=== PATIENT | female | born 1995 | race African-American/Black ===

== ENCOUNTER 2018-03-07 16:46 | Emergency (ER) | payer OTHER ==
[~2018-03-07] VITALS: Ht 162.6 cm; Wt 58.1 kg
[2018-03-07 17:53] LABS: BACTERIA,URINE FEW /HPF (0-FEW); BILIRUBIN,URINE NEG (NEG); CLARITY,URINE HAZY; COLOR,URINE YELLOW; GLUCOSE,URINE NEG (NEG); NITRITE,URINE NEG (NEG); SQUAMOUS EPITHELIAL CELL,UR MANY /LPF; UROBILINOGEN,URINE 0.2 mg/dL (0.2 mg/dL)
[2018-03-07] MEDS ORDERED: FLUC150T PO (18:01)
[2018-03-07] MEDS ORDERED: CIPR250T30 PO (18:01)
--- NOTE | 2018-03-07 18:01 | PHYS DOC ---
Past History Past Medical History: No Pertinent History Past Surgical History: Other Drug Use: None Adult General Chief Complaint Chief Complaint: VAGINAL PROBLEM HPI HPI Patient is a 23-year-old female who presents with complaining of vaginal discharge and itching. Patient states she became sexually active for the first time 2 weeks ago with using condoms since yesterday states she had has had itching and discharge without nausea and vomiting, abdominal pain, vaginal bleeding. She denies history of STD. Review of Systems Review of Systems Constitutional: Denies fever or chills [] Eyes: Denies change in visual acuity, redness, or eye pain [] HENT: Denies nasal congestion or sore throat [] Respiratory: Denies cough or shortness of breath [] Cardiovascular: No additional information not addressed in HPI [] GI: Denies abdominal pain, nausea, vomiting, bloody stools or diarrhea [] : Denies dysuria or hematuria [] Musculoskeletal: Denies back pain or joint pain [] Integument: Denies rash or skin lesions [] Neurologic: Denies headache, focal weakness or sensory changes [] Endocrine: Denies polyuria or polydipsia [] All other systems were reviewed and found to be within normal limits, except as documented in this note. Allergies Allergies Allergies Coded Allergies Type Severity Reaction Last Updated Verified nickel Allergy Intermediate 03/07/18 Yes Physical Exam Physical Exam Constitutional: Well developed, well nourished, no acute distress, non-toxic appearance. [] HENT: Normocephalic, atraumatic Eyes: PERRLA, EOMI, conjunctiva normal, no discharge. [] Neck: Normal range of motion, no tenderness, supple, no stridor. [] Cardiovascular:Heart rate regular rhythm, no murmur [] Lungs & Thorax: Bilateral breath sounds clear to auscultation [] Abdomen: Bowel sounds normal, soft, no tenderness, no masses, no pulsatile masses. [Vaginal exam with present of entomology teacher showed normal external vagina without lesions, moderate amount of cheesy-like discharge in the vagina without tenderness or adnexal mass Skin: Warm, dry, no erythema, no rash. [] Back: No tenderness, no CVA tenderness. [] Extremities: No tenderness, no cyanosis, no clubbing, ROM intact, no edema. [] Neurologic: Alert and oriented X 3, normal motor function, normal sensory function, no focal deficits noted. [] Psychologic: Affect normal, judgement normal, mood normal. [] Current Patient Data Vital Signs Vital Signs Date Time Temp Pulse Resp B/P (MAP) Pulse Ox O2 Delivery O2 Flow Rate FiO2 03/07/18 16:55 98.6 67 22 99 Room Air Lab Results Laboratory Tests Test 03/07/18 16:33 03/07/18 17:05 POC Urine HCG, Qualitative hcg negative (Negative) Urine Collection Type Unknown Urine Color Yellow Urine Clarity Hazy Urine pH 5.5 Urine Specific [place] >=1.030 Urine Protein Neg (NEG-TRACE) Urine Glucose (UA) Neg mg/dL (NEG) Urine Ketones (Stick) Neg mg/dL (NEG) Urine Blood Small (NEG) Urine Nitrite Neg (NEG) Urine Bilirubin Neg (NEG) Urine Urobilinogen Dipstick 0.2 mg/dL (0.2 mg/dL) Urine Leukocyte Esterase Small (NEG) Urine RBC 3-5 /HPF (0-2) Urine WBC 5-10 /HPF (0-4) Urine Squamous Epithelial Cells Many /LPF Urine Bacteria Few /HPF (0-FEW) Urine Mucus Marked /LPF EKG EKG [] Radiology/Procedures Radiology/Procedures [] Course & Med Decision Making Course & Med Decision Making Pertinent Labs and Imaging studies reviewed. (See chart for details) Addendum by Dr. Dante Gama at 1828: I took over care of patient at 1800. I followed up with the patient's wet prep which was pending at time of sign out. Wet prep is unremarkable. Patient prescribed appropriate medication for treatment of candidiasis and urinary tract infection. Evaluation shows no change from previous the documented exam. Patient discharged with follow-up as explained by Dr. Ferreira prior to my evaluation. Recommended return the emergency department for any worsening symptoms. Patient was understanding and agreement with treatment plan.[] Dragon Disclaimer Dragon Disclaimer This electronic medical record was generated, in whole or in part, using a voice recognition dictation system. Departure Departure: Impression: Primary Impression: Urinary tract infection Additional Impression: Vaginal discharge Disposition: 01 HOME, SELF-CARE Condition: STABLE Referrals: VALERIE DAS (PCP) Patient Instructions: Urinary Tract Infection, Vaginitis, Monilial Additional Instructions: Drink plenty of liquids Follow-up with your primary care physician in 3-5 days Return to ER if not getting better Scripts Fluconazole (DIFLUCAN) 150 Mg Tablet 1 TAB PO ONCE, #1 TAB 1 Refill Prov: VIVIANE FERREIRA MD 03/07/18 Ciprofloxacin Hcl (CIPRO) 250 Mg Tablet 1 TAB PO BID, #6 TAB Prov: VIVIANE FERREIRA MD 03/07/18 Problem Qualifiers VIVIANE FERREIRA MD Mar 07, 2018 18:01 DANTE GAMA MD Mar 07, 2018 18:31
[2018-03-07 18:25] VITALS: BP 129/89
[2018-03-08 15:08] LABS: CHLAMYDIA PROBE Negative (Negative)
== END 2018-03-07 18:27 | disposition home or self-care (01) ==
LOC: ER 16:46
DX: N39.0 Urinary tract infection, site not specified (principal); N89.8 Other specified noninflammatory disorders of vagina; B37.9 Candidiasis, unspecified; Z88.8 Allergy status to other drugs, medicaments and biological substances
CPT/HCPCS: 36415; 81001; 81025; 87086; 87491; 87591; 99284; Q0111